=== PATIENT | female | born 1930 | race Caucasian/White ===

== ENCOUNTER 2019-11-23 16:10 | Observation (INO) ==
--- NOTE | 2019-11-23 16:38 | ERNOTE ---
ER Female HPI Date of Service: 11/23/19 Stated Complaint: UTI allergic to bactrim Presenting Symptoms: other - Urinary frequency Time Seen by Provider: 11/23/19 16:36 Source: patient, family, RN notes reviewed, past records Exam Limitations: no limitations Immunizations: IMMUNIZATION HX Immunizations Up to Date Yes History of Influenza Vaccine Yes Hx Pneumococcal Vaccination Yes Allergies/Adverse Reactions: Allergies sulfamethoxazole [From Bactrim] Allergy (Verified 11/23/19 16:25) Hives trimethoprim [From Bactrim] Allergy (Verified 11/23/19 16:25) Hives nifedipine Adverse Reaction (Verified 11/23/19 16:37) Other Elevated liver enzymes. Home Medications: HOME MEDICATIONS amlodipine 10 mg tablet 10 mg PO DAILY tab 10/16/19 [Last Taken Unknown] atorvastatin 40 mg tablet 40 mg PO HS tab 10/16/19 [Last Taken Unknown] losartan 50 mg tablet 25 mg PO DAILY tab 10/16/19 [Last Taken Unknown] metoprolol succinate 25 mg tablet,extended release 24 hr 25 mg PO DAILY tab 10/16/19 [Last Taken Unknown] aspirin 81 mg tablet,delayed release 81 mg PO DAILY #1 tab 10/23/19 [Last Taken Unknown] nitroglycerin 0.4 mg sublingual tablet 0.4 mg SL Q5M PRN #1 tab 10/23/19 [Last Taken Unknown] sulfamethoxazole 800 mg-trimethoprim 160 mg tablet 1 tab PO BID 5 Days #10 tab 11/22/19 [Last Taken Unknown] - History of Present Illness Narrative: Patricia is an 89-year-old female brought to the emergency department from home by her daughter for a urinary tract infection and a reaction to Bactrim. She was seen in the walk-in clinic yesterday for urinary frequency. She was started on Bactrim and began breaking out in a rash sometime this morning. Her UA in the clinic was unremarkable aside from the presence of leukocytes. Her urine culture is not showing any growth. The patient is very alert and independent, but her daughter reports that the patient is very forgetful. She has seemed to be more mixed up than usual for the past few days. Associated Symptoms: Present: dysuria, urinary frequency, loss of bladder control. Absent: fever/chills, nausea, vomiting, abdominal pain Prior Treatment: Present: recently seen, currently on antibiotics Review of Systems - Review of Systems Constitutional: Absent: fever, chills, malaise EYE: Present: no symptoms reported ENT: Present: no symptoms reported Respiratory: Absent: shortness of breath, cough Cardiology: Present: edema. Absent: chest pain Gastrointestinal/Abdominal: Absent: nausea, vomiting, abdominal pain Genitourinary: Present: frequency, dysuria Musculoskeletal: Absent: muscle pain, joint pain Skin: Present: rash, lesions Neurological: Absent: headache, dizziness/light-headedness Endocrine: Present: no symptoms reported Hematologic/Lymphatic: Absent: easy bruising, easy bleeding Psych: Present: no symptoms reported Medical History (Last Reviewed 11/23/19 @ 17:54 by Shima Greer NP) Primary osteoarthritis of right knee (Chronic) Hypertension Onset Date: Unknown Surgical History: Surgical History (Last Reviewed 11/23/19 @ 17:54 by Shima Greer NP) History of tonsillectomy Onset Date: Unknown Hx of cholecystectomy Onset Date: Unknown Stented coronary artery Onset Date: Unknown Family History: Family History (Last Reviewed 11/23/19 @ 17:54 by Shima Greer NP) Mother No significant past medical history Father No significant past medical history Social History: (Last Reviewed 11/23/19 @ 17:54 by Shima Greer NP) Social History: long term: No Marital status: / current occupational status: retired current occupation: retired Highest education level completed: high school graduate Service: No Tobacco: Smoking Status: Never smoker Alcohol: alcohol intake: never Substance Use: substance use type: does not use Dietary Habits: caffeine: Yes Physical Exam - Physical Exam General Appearance: Present: wd/wn, alert, no apparent distress, cheerful Head Exam: Present: normal inspection Eye Exam: Normal inspection: bilateral Respiratory: Present: no respiratory distress, normal breath sounds, no accessory muscle use, lungs clear Cardiovascular/Chest: Present: regular rate, rhythm, no murmur, normal peripheral pulses Gastrointestinal/Abdominal: Present: nontender, nondistended, soft Back Exam: Present: normal inspection, no CVA tenderness Extremity Exam: Present: normal range of motion, pedal edema Neurological Exam: Present: alert, normal mood/affect, no motor/sensory deficits, other - Mild confusion at times, reorients quickly Skin Exam: Present: normal color, warm/dry Progress - Results and Orders Patient's Lab Results:: I have reviewed the patient's lab results. - Vital Signs Patient's Vital Signs:: I have reviewed the patient's vital signs. Vital Signs: Vital Signs 11/23/19 16:19 Temperature 36.1 C Pulse Rate 91 Respiratory Rate 20 Blood Pressure 160/79 H O2 Sat by Pulse Oximetry 97 - EKG EKG #1 EKG: NSR EKG read: Reviewed by me - Progress/Reassessment Chief Complaint: Genitourinary Problem Progress:: Unchanged Plan - Plan Plan: The patient is apparently allergic to Bactrim, as she has broken out in a rash when she has taken it in the past. This was added to her allergy list. Her urine today was unremarkable. The cause of her urinary frequency is not clear. Her sodium is 126. She has no prior history of hyponatremia. I contacted Dr. Pedraza and the patient will be admitted to observation status for correction of her hyponatremia. Departure Clinical Impression: Acute hyponatremia - Departure Disposition: Still a patient Condition: Stable
[2019-11-23 16:46] LABS: Urine Appearance Clear (CLEAR); Urine Bilirubin Negative (NEGATIVE); Urine Blood 5 /ul (NEGATIVE); Urine Color Yellow; Urine Ketone Negative (NEGATIVE); Urine Specific Gravity 1.005 SP.GR. (1.005-1.010)
[2019-11-23 16:47] LABS: Urine Bacteria None Seen; Urine Nitrite Negative (NEGATIVE); Urine Protein Negative (NEGATIVE); Urine RBC None Seen /hpf (0-5); Urine Urobilinogen Normal (NORMAL); Urine WBC 0-5 /hpf (0-5)
[2019-11-23 16:50] LABS: Hematocrit 43.8 % (37.0-47.0); Hemoglobin 14.8 gm/dL (12.5-16.0); Mean Corpuscular Hemoglobin 30.1 pg (27-31); Mean Corpuscular Hgb Conc 33.8 g/dl (32-36); Mean Platelet Volume 8.1 fl (8-12.5); Neutrophil # 8.6 K/mm3 (1.3-6.0); Neutrophil % 67.4 % (42-75.0); Platelet Count 244 K/mm3 (150-450); Red Blood Count 4.92 M/mm3 (4.2-5.4); Red Cell Distribution Width 12.7 % (11.5-14.0); White Blood Count 12.7 K/mm3 (4.0-10.5)
[2019-11-23 17:03] LABS: Anion Gap 14.5 mmol/L (6.8-13.8); BUN/Creatinine Ratio 15.7 (9.0-21.6); Bilirubin, Total 0.7 mg/dL (0.0-1.1); Ca. Corrected For Albumin 9.4 mg/dL (8.4-10.2); Calcium * 9.7 mg/dL (7.9-10.9); Potassium 3.5 mmol/L (3.4-4.6); Total Protein 7.8 gm/dL (6.2-8.2)
[2019-11-23] MEDS: NORMAL SALINE 1,000 ML IV PRN (18:04)
--- NOTE | 2019-11-23 19:51 | HP ---
Chief Complaint - Chief Complaint Date of Service: 11/23/19 Time of Service: 19:51 Chief Complaint: Chest pain History of Present Illness: Patient with past medical history of coronary artery disease. Report from the ERP stated she went to the walk-in clinic yesterday for dysuria and was started on Bactrim for possible UTI. This morning she developed hives, and her daughter felt like she was not acting like herself so she brought her to the ED. She is found to have hyponatremia with a sodium of 126. When I asked the reason behind her ED visit today, she reports having chest pain yesterday, similar to chest pain she has had in the past. She has had stents placed. She agrees with the dysuria, but did not feel like it was significant. She states she has been drinking more water than normal because of her urine symptoms. Note from the walk in clinic visit states she may have some prolapse and follow-up with gynecology recommended. Her urine culture is negative thus far. She has a slight white cell count of 12.6. She reports to me that she feels like her baseline self. She is able to state place, president, but states the date is November 29. She is admitted for hyponatremia correction. Discuss CODE STATUS, and she declined CPR or ventilation. Asked her to discuss this with her family so they know her wishes. Medical History (Last Reviewed 11/23/19 @ 19:25 by Irene Leggett RN) Primary osteoarthritis of right knee (Chronic) Hypertension Onset Date: Unknown Surgical History: Surgical History (Last Reviewed 11/23/19 @ 19:25 by Irene Leggett RN) History of tonsillectomy Onset Date: Unknown Hx of cholecystectomy Onset Date: Unknown Stented coronary artery Onset Date: Unknown Family History: Family History (Last Reviewed 11/23/19 @ 19:25 by Irene Leggett RN) Mother No significant past medical history Father No significant past medical history Social History: (Last Reviewed 11/23/19 @ 19:25 by Irene Leggett RN) Social History: correction: No Marital status: / current occupational status: retired current occupation: retired Highest education level completed: high school graduate Service: No Tobacco: Smoking Status: Never smoker Alcohol: alcohol intake: never Substance Use: substance use type: does not use Dietary Habits: caffeine: Yes Review Of Systems (GEN) - Review of Systems Generalized/Overall Review: Absent: Weakness, Fever Respiratory: Present: Shortness of Breath - Slight, with yesterday's chest pain. Absent: Cough Cardiac: Present: Chest Pain - Resolved. Absent: Edema Abdominal: Present: Constipation - Mild, chronic. Absent: Diarrhea Skin: Present: Lesions Immunizations: IMMUNIZATION HX Immunizations Up to Date Yes History of Influenza Vaccine Yes Hx Pneumococcal Vaccination Yes Allergies/Adverse Reactions: Allergies Allergy/AdvReac Type Severity Reaction Status Date / Time sulfamethoxazole Allergy Hives Verified 11/23/19 16:25 [From Bactrim] trimethoprim [From Bactrim] Allergy Hives Verified 11/23/19 16:25 nifedipine AdvReac Other Verified 11/23/19 16:37 Home Medications: HOME MEDICATIONS amlodipine 10 mg tablet 10 mg PO DAILY tab 10/16/19 [Last Taken Unknown] atorvastatin 40 mg tablet 40 mg PO HS tab 10/16/19 [Last Taken Unknown] losartan 50 mg tablet 25 mg PO DAILY tab 10/16/19 [Last Taken Unknown] metoprolol succinate 25 mg tablet,extended release 24 hr 25 mg PO DAILY tab 10/16/19 [Last Taken Unknown] aspirin 81 mg tablet,delayed release 81 mg PO DAILY #1 tab 10/23/19 [Last Taken Unknown] nitroglycerin 0.4 mg sublingual tablet 0.4 mg SL Q5M PRN #1 tab 10/23/19 [Last Taken Unknown] Exam - Exam Vital Signs: Vital Signs - Last Taken Temp 36.8 C 11/23/19 19:08 Pulse 89 11/23/19 19:08 Resp 20 11/23/19 19:08 BP 147/73 11/23/19 19:08 Pulse Ox 97 11/23/19 19:08 Constitutional: Present: Alert, Oriented x3, Cooperative, Elderly, Thin and frail Respiratory: Present: lungs clear, normal breath sounds Cardiovascular/Chest: Present: regular rate, rhythm Abdomen: Present: soft, suprapubic tenderness Extremity: Absent: lower extremity edema Skin Exam: Present: other - multiple erythematous patches of left hand, forearm, left lower leg Neurologic: Present: normal mood/affect Eye contact: Present: cooperative, good eye contact Diagnostic Studies: Abnormal Lab Results 11/23/19 11/23/19 11/23/19 Range/Units 16:39 16:45 16:45 WBC 12.7 H (4.0-10.5) K/mm3 Immature Gran # (Auto) 0.05 H (0.000-0.0310) K/mm3 Lymphocytes % 19.4 L (20-51) % Monocytes % 9.7 H (0.0-9) % Neutrophils # 8.6 H (1.3-6.0) K/mm3 Monocytes # 1.2 H (0.0-1.0) k/mm3 Sodium 126 L (132-142) mmol/L Plasma Sodium 126 L (130-142) mmol/L Chloride 92 L (97-106) mmol/L Carbon Dioxide 23.0 L (24-32.6) mmol/L Anion Gap 14.5 H (6.8-13.8) mmol/L Est GFR (Non-Af Amer) 54 L (60-130) mL/min Urine Blood 5 H (NEGATIVE) /ul Laboratory Results WBC 12.7 K/mm3 (4.0-10.5) H 11/23/19 16:45 RBC 4.92 M/mm3 (4.2-5.4) 11/23/19 16:45 Hgb 14.8 gm/dL (12.5-16.0) 11/23/19 16:45 Hct 43.8 % (37.0-47.0) 11/23/19 16:45 MCV 89.0 fl (78-100) 11/23/19 16:45 MCH 30.1 pg (27-31) 11/23/19 16:45 MCHC 33.8 g/dl (32-36) 11/23/19 16:45 RDW 12.7 % (11.5-14.0) 11/23/19 16:45 Plt Count 244 K/mm3 (150-450) 11/23/19 16:45 MPV 8.1 fl (8-12.5) 11/23/19 16:45 Immature Gran % (Auto) 0.40 % (0.001-0.429) 11/23/19 16:45 Immature Gran # (Auto) 0.05 K/mm3 (0.000-0.0310) H 11/23/19 16:45 Neutrophils % 67.4 % (42-75.0) 11/23/19 16:45 Lymphocytes % 19.4 % (20-51) L 11/23/19 16:45 Monocytes % 9.7 % (0.0-9) H 11/23/19 16:45 Eosinophils % 2.7 % (0.0-3.0) 11/23/19 16:45 Basophils % 0.4 % (0.0-1.0) 11/23/19 16:45 Nucleated RBC % 0.0 k/mm3 (0-1) 11/23/19 16:45 Neutrophils # 8.6 K/mm3 (1.3-6.0) H 11/23/19 16:45 Lymphocytes # 2.47 k/mm3 (1.5-3.5) 11/23/19 16:45 Monocytes # 1.2 k/mm3 (0.0-1.0) H 11/23/19 16:45 Eosinophils # 0.4 k/mm3 (0.0-0.7) 11/23/19 16:45 Absolute Basophils 0.1 k/mm3 (0.0-0.1) 11/23/19 16:45 Sodium 126 mmol/L (132-142) L 11/23/19 16:45 Plasma Sodium 126 mmol/L (130-142) L 11/23/19 16:45 Potassium 3.5 mmol/L (3.4-4.6) 11/23/19 16:45 Chloride 92 mmol/L (97-106) L 11/23/19 16:45 Carbon Dioxide 23.0 mmol/L (24-32.6) L 11/23/19 16:45 Anion Gap 14.5 mmol/L (6.8-13.8) H 11/23/19 16:45 BUN 16 mg/dL (3-23) D 11/23/19 16:45 Creatinine 1.02 mg/dL (0.4-1.4) 11/23/19 16:45 Est GFR (Non-Af Amer) 54 mL/min (60-130) L 11/23/19 16:45 BUN/Creatinine Ratio 15.7 (9.0-21.6) 11/23/19 16:45 Random Glucose 107 mg/dL (70-110) 11/23/19 16:45 Calcium 9.7 mg/dL (7.9-10.9) 09/12/20 16:45 Calcium Adj for Albumin 9.4 mg/dL (8.4-10.2) 11/23/19 16:45 Total Bilirubin 0.7 mg/dL (0.0-1.1) 11/23/19 16:45 AST 22 U/L (0-48) 11/23/19 16:45 ALT 28 U/L (19-67) 11/23/19 16:45 Alkaline Phosphatase 85 U/L (50-170) 11/23/19 16:45 Total Protein 7.8 gm/dL (6.2-8.2) 11/23/19 16:45 Albumin 4.0 gm/dl (3.4-5.0) 11/23/19 16:45 Urine Color Yellow 11/23/19 16:39 Urine Appearance Clear (CLEAR) 11/23/19 16:39 Urine pH 6.0 pH (5.0-7.0) 11/23/19 16:39 Ur Specific [place] 1.005 SP.GR. (1.005-1.010) 11/23/19 16:39 Urine Protein Negative mg/dL (NEGATIVE) 11/23/19 16:39 Urine Glucose (UA) Negative mg/dL (NEGATIVE) 11/23/19 16:39 Urine Ketones Negative mg/dL (NEGATIVE) 11/23/19 16:39 Urine Blood 5 /ul (NEGATIVE) H 11/23/19 16:39 Urine Nitrate Negative (NEGATIVE) 11/23/19 16:39 Urine Bilirubin Negative mg/dl (NEGATIVE) 11/23/19 16:39 Urine Urobilinogen Normal EU/dl (NORMAL) 11/23/19 16:39 Ur Leukocyte Esterase Negative /ul (NEGATIVE) 11/23/19 16:39 Urine RBC None seen /hpf (0-5) 11/23/19 16:39 Urine WBC 0-5 /hpf (0-5) 11/23/19 16:39 Ur Epithelial Cells 0-5 /hpf (0-5) 11/23/19 16:39 Urine Bacteria None seen (NONE) 11/23/19 16:39 Urine Culture Comments No culture indicated 11/23/19 16:39 Assessment/Plan - Assessment/Plan (1) Acute hyponatremia Assessment: Admission sodium was 126. Will administer maintenance rate normal saline and recheck in the morning. Bactrim can cause hyponatremia. If her sodium improves and she feels well enough, potential DC tomorrow. Problem: Acute (2) Chest pain Assessment: Present yesterday, and has resolved. She states this happens at times. Has a history of CAD, for which she takes nitro. EKG does not show signs of ischemia or infarct. Troponin pending, though it will not exchange architect. Discussed code status, and she declines CPR or ventilation. Problem: Resolved (3) Coronary artery disease Assessment: Will continue home meds. Per ERP, she has been told that medical management is what's currently recommend. Procedural interventions would likely be more harmful than helpful. Problem: Chronic (4) Chronic renal disease, stage 3, moderately decreased glomerular filtration rate (GFR) between 30-59 mL/min/1.73 square meter Assessment: GFR is 54, and was 57 in March, so she appears to be at her baseline. Problem: Acute (5) Dysuria Assessment: Present for a few weeks. Note from [facility] yesterday reported possible uterine prolapse, and follow up with gynecology was recommended. Problem: Acute (6) Hives Assessment: felt to be due to the bactrim, of which she took 1 or 2 doses. She states the hives are mildly itchy, but not significant. Will not add a medication at this time, to avoid a paridoxical reaction. Recheck in am. Can add benadryl or hydroxyzine if they worsen or interfere with sleep. Problem: Acute
[2019-11-23] MEDS ORDERED: ROSUVASTATIN CALCIUM 20 MG TABLET PO SCH (21:00)
[2019-11-24] MEDS: NORMAL SALINE 1,000 ML IV PRN (04:52)
[2019-11-24 07:00] LABS: Albumin * 3.3 gm/dl (3.4-5.0); Anion Gap 10.8 mmol/L (6.8-13.8); Bilirubin, Total 0.7 mg/dL (0.0-1.1); Ca. Corrected For Albumin 9.1 mg/dL (8.4-10.2); Calcium * 8.9 mg/dL (7.9-10.9); Carbon Dioxide 25.7 mmol/L (24-32.6); Potassium 3.5 mmol/L (3.4-4.6); Total Protein 6.1 gm/dL (6.2-8.2)
[2019-11-24] MEDS ORDERED: LOSARTAN POTASSIUM 50 MG TABLET PO SCH (09:00)
[2019-11-24] MEDS ORDERED: amLODIPine BESYLATE 10 MG TABLET PO SCH (09:00)
[2019-11-24] MEDS ORDERED: ASPIRIN 81 MG TABLET.DR PO SCH (09:00)
[2019-11-24] MEDS ORDERED: METOPROLOL SUCCINATE 25 MG TABLET.SA PO SCH (09:00)
--- NOTE | 2019-11-24 09:15 | DS ---
(1) Acute hyponatremia Problem: Resolved (2) Chest pain Problem: Resolved (3) Coronary artery disease Problem: Chronic (4) Chronic renal disease, stage 3, moderately decreased glomerular filtration rate (GFR) between 30-59 mL/min/1.73 square meter Problem: Chronic (5) Dysuria Problem: Chronic (6) Hives Problem: Acute Date of Discharge:: 11/24/19 Hospital Course: Patient with past medical history of coronary artery disease. Report from the ERP stated she went to the walk-in clinic 11/21 for dysuria and was started on Bactrim for possible UTI. The morning of admission she developed hives, and her daughter felt like she was not acting like herself so she brought her to the ED. She is found to have hyponatremia with a sodium of 126. When I asked the reason behind her ED visit, she reports having chest pain, similar to chest pain she has had in the past. She has had stents placed. She agrees with the dysuria, but did not feel like it was significant. She states she has been drinking more water than normal because of her urine symptoms. Note from the walk in clinic visit states she may have some prolapse and follow-up with gynecology recommended. Her urine culture was negative. She has a slight white cell count of 12.6. She reports to me that she feels like her baseline self. She is able to state place, president, but states the date is November 29. She is admitted for hyponatremia correction and given normal saline. Troponin was negative, and no signs of ischemia or infarct on EKG. Her sodium was 139 in the morning, and she felt comfortable discharging home. Her hives were no longer as itchy, and no intervention needed. Her daughter was also updated of the DC plan. She has an appt to establish with Adry Rascon tomorrow morning. Discuss CODE STATUS, and she declined CPR or ventilation. Asked her to discuss this with her family so they know her wishes. Procedures Performed: none Results and Findings: Lab Pending Results 11/23/19 16:39: Urine Color Yellow, Urine Appearance Clear, Urine pH 6.0, Ur Specific [place] 1.005, Urine Protein Negative, Urine Glucose (UA) Negative, Urine Ketones Negative, Urine Blood 5 H, Urine Nitrate Negative, Urine Bilirubin Negative, Urine Urobilinogen Normal, Ur Leukocyte Esterase Negative, Urine RBC None seen, Urine WBC 0-5, Ur Epithelial Cells 0-5, Urine Bacteria None seen, Urine Culture Comments No culture indicated 11/23/19 16:45: WBC 12.7 H, RBC 4.92, Hgb 14.8, Hct 43.8, MCV 89.0, MCH 30.1, MCHC 33.8, RDW 12.7, Plt Count 244, MPV 8.1, Immature Gran % (Auto) 0.40, Immature Gran # (Auto) 0.05 H, Neutrophils % 67.4, Lymphocytes % 19.4 L, Monocytes % 9.7 H, Eosinophils % 2.7, Basophils % 0.4, Nucleated RBC % 0.0, Neutrophils # 8.6 H, Lymphocytes # 2.47, Monocytes # 1.2 H, Eosinophils # 0.4, Absolute Basophils 0.1 11/23/19 16:45: Sodium 126 L, Plasma Sodium 126 L, Potassium 3.5, Chloride 92 L, Carbon Dioxide 23.0 L, Anion Gap 14.5 H, BUN 16 D, Creatinine 1.02, Est GFR (Non-Af Amer) 54 L, BUN/Creatinine Ratio 15.7, Random Glucose 107, Calcium 9.7, Calcium Adj for Albumin 9.4, Total Bilirubin 0.7, AST 22, ALT 28, Alkaline Phosphatase 85, Total Protein 7.8, Albumin 4.0 11/23/19 20:40: Troponin I Less than 0.017 11/24/19 06:15: Sodium 139, Plasma Sodium 139, Potassium 3.5, Chloride 106, Carbon Dioxide 25.7, Anion Gap 10.8, BUN 10, Creatinine 0.77, Est GFR (Non-Af Amer) 75 D, BUN/Creatinine Ratio 13.0, Random Glucose 102, Calcium 8.9, Calcium Adj for Albumin 9.1, Total Bilirubin 0.7, AST 20, ALT 23, Alkaline Phosphatase 63, Total Protein 6.1 L, Albumin 3.3 L Discharge Location: Home Disposition: Home self-care Condition: Good Discharge Activity: Activity as tolerated Discharge Diet: General/regular food Referrals: Belen Bautista MD [Staff Physician] - Two Weeks Additional Patient Instructions (free text): Patient has an appointment to establish with Adry Rascon tomorrow morning. Complete Home Medications List: Complete Home Medication List: amlodipine 10 mg tablet 10 mg PO DAILY tab 10/16/19 atorvastatin 40 mg tablet 40 mg PO HS tab 10/16/19 losartan 50 mg tablet 25 mg PO DAILY tab 10/16/19 metoprolol succinate 25 mg tablet,extended release 24 hr 25 mg PO DAILY tab 10/16/19 aspirin 81 mg tablet,delayed release 81 mg PO DAILY #1 tab 10/23/19 nitroglycerin 0.4 mg sublingual tablet 0.4 mg SL Q5M PRN #1 tab 10/23/19 Forms: Patient Portal Registration
[2019-11-24 10:53] VITALS: BP 145/69
== END 2019-11-24 11:10 | disposition home or self-care (01) ==
LOC: MS 16:10 → ER 16:10 → MS 18:54
PROVIDERS: ADMIT Family Medicine; ATTEND Family Medicine
DX: R07.9 Chest pain, unspecified; I12.9 Hypertensive chronic kidney disease with stage 1 through stage 4 chronic kidney disease, or unspecified chronic kidney disease; E87.1 Hypo-osmolality and hyponatremia; T36.8X5A Adverse effect of other systemic antibiotics, initial encounter; R30.0 Dysuria; N18.3 Chronic kidney disease, stage 3 (moderate); L50.0 Allergic urticaria; I25.10 Atherosclerotic heart disease of native coronary artery without angina pectoris